=== PATIENT | female | born 2005 ===

== ENCOUNTER 2024-08-04 13:52 | Outpatient (CLI) | payer BC, SELFPAY ==
--- NOTE | ~2024-08-04 | US_ITS ---
EXAMINATION: US pelvic complete DATE: 08/04/2024 14:23 INDICATION: Pelvic pain. TECHNIQUE: Multiple transabdominal and transvaginal sonographic images of the pelvis were obtained. COMPARISON: None. FINDINGS: TRANSABDOMINAL ULTRASOUND: The uterus measures 7.8 x 3.0 x 4.3 cm. There is no free fluid in the pelvis. TRANSVAGINAL ULTRASOUND: The endometrial complex measures 5 mm in thickness. The right ovary measures 4.6 x 3.3 x 4.5 cm. Ther e is a 3.8 cm cystic mass with low-level echoes in right ovary, consistent with a hemorrhagic cyst. T he left ovary measures 2.1 x 1.6 x 2.9 cm. There is normal vascular flow in the ovaries. IMPRESSION: 1. 3.8 cm hemorrhagic cyst in right ovary. Reviewed, dictated and finalized at location A. [employer]
== END 2024-08-04 13:53 | disposition home or self-care (01) ==
PROVIDERS: PCP Obstetrics & Gynecology Gynecology; Visit Provider Nurse Practitioner Women's Health
DX: N83.201 Unspecified ovarian cyst, right side (principal); R10.2 Pelvic and perineal pain
CPT/HCPCS: 76856

== ENCOUNTER 2024-09-18 13:22 | Outpatient (CLI) | payer BC, SELFPAY ==
--- NOTE | ~2024-09-18 | US_ITS ---
Pelvic ultrasound. Clinical History: Cyst COMPARISON: 08/04/2024 Technique: Realtime transabdominal scanning of the pelvis was performed. Color flow Doppler and Doppl er spectral analysis were performed. Findings: The uterus is anteverted. The endometrial stripe has a thickness of 3 mm. No focal mass is identified. The right ovary measures 2.7 x 2.7 x 2.9 cm. Probable 1.3 cm right ovarian cyst present. The left ovary measures 2.1 x 2.0 x 1.7 cm. No significant left ovarian or adnexal mass is seen. There is no evidence of free fluid in the cul de sac. Impression: No significant abnormality seen. Reviewed, dictated and finalized at location . [facility] Impression: No significant abnormality seen.
== END 2024-09-18 13:23 | disposition home or self-care (01) ==
LOC: MICIMG 13:23
PROVIDERS: PCP Obstetrics & Gynecology Gynecology; Visit Provider Nurse Practitioner Women's Health
DX: N83.202 Unspecified ovarian cyst, left side (principal)
CPT/HCPCS: 76856